=== PATIENT | female | born 1995 | race Native Hawaiian/Other Pacific Islander ===

== ENCOUNTER 2017-04-12 21:44 | Emergency (ER) | payer OTHER ==
[~2017-04-12] VITALS: Ht 157.5 cm; Wt 68.5 kg
[2017-04-12 22:07] VITALS: BP 148/88; TEMP 98.4
== END 2017-04-12 22:40 | disposition left against medical advice (07) ==
LOC: ED 21:44
DX: R10.13 Epigastric pain (principal); R00.0 Tachycardia, unspecified
CPT/HCPCS: 99282

== ENCOUNTER 2017-05-31 13:42 | Emergency (ER) | payer OTHER ==
[~2017-05-31] VITALS: Ht 157.5 cm; Wt 72.6 kg
[2017-05-31 13:51] VITALS: TEMP 98.7
[2017-05-31 14:21] VITALS: BP 118/78
== END 2017-05-31 14:22 | disposition home or self-care (01) ==
LOC: ED 13:42
DX: L02.411 Cutaneous abscess of right axilla (principal)
CPT/HCPCS: 99281

== ENCOUNTER 2018-05-31 18:17 | Emergency (ER) | payer OTHER ==
[~2018-05-31] VITALS: Ht 157.5 cm; Wt 65.8 kg
[2018-05-31 19:25] LABS: PLATELET COUNT 340 K/uL (152-353)
[2018-05-31 19:58] LABS: POTASSIUM 3.9 mmol/L (3.6-5.2); SODIUM 140 mmol/L (136-145)
[2018-05-31 21:18] VITALS: BP 128/74; TEMP 98.3
== END 2018-05-31 21:18 | disposition home or self-care (01) ==
LOC: ED 18:17
PROVIDERS: Emergency Medicine
DX: R07.89 Other chest pain (principal)
CPT/HCPCS: 80053; 81025; 82550; 82553; 84484; 85027; 93005; 96372; 99283; J1885

== ENCOUNTER 2020-04-21 23:23 | Emergency (ER) | payer OTHER | END 2020-04-22 | disposition home or self-care (01) | LOC: ED 23:23 | DX: R31.9 Hematuria, unspecified (principal) | CPT/HCPCS: 99281 ==

== ENCOUNTER 2020-04-25 01:30 | Emergency (ER) | payer OTHER ==
[~2020-04-25] VITALS: Ht 157.5 cm; Wt 65.8 kg
[2020-04-25 01:40] VITALS: BP 104/74; TEMP 98.1
[2020-04-25 02:22] LABS: PLATELET COUNT 429 K/uL (152-353)
[2020-04-25 02:27] LABS: POTASSIUM 4.1 mmol/L (3.6-5.2)
== END 2020-04-25 02:45 | disposition home or self-care (01) ==
LOC: ED 01:30
PROVIDERS: Emergency Medicine
DX: R10.84 Generalized abdominal pain (principal)
CPT/HCPCS: 36415; 80053; 81000; 81025; 82150; 83690; 85027; 87077; 87086; 87088; 87186; 99282; J1885

== ENCOUNTER 2023-02-22 08:56 | Emergency (ER) | payer OTHER ==
[~2023-02-22] VITALS: Ht 157.5 cm; Wt 65.8 kg
[2023-02-22 09:02] VITALS: BP 143/86; TEMP 97.5
== END 2023-02-22 09:27 | disposition home or self-care (01) ==
LOC: ED 08:56
DX: K02.9 Dental caries, unspecified (principal); F17.210 Nicotine dependence, cigarettes, uncomplicated
CPT/HCPCS: 99281